=== PATIENT | female | born 2000 | race Two or more races ===

== ENCOUNTER 2024-05-11 19:36 | Emergency (ER) | payer OTHER ==
[~2024-05-11] VITALS: Ht 154.9 cm; Wt 56.2 kg
[2024-05-11 19:58] VITALS: BP 122/78; O2SAT 100
[2024-05-11] MEDS ORDERED: ORPHENADRINE CITRATE 30 MG/ML AMPUL ONE (20:20)
[2024-05-11] MEDS ORDERED: KETOROLAC TROMETHAMINE 60 MG VIAL IM ONE (20:30)
[2024-05-11 20:51] LABS: HEMOGLOBIN 13.3 g/dL (12.0-15.00); MEAN CELL VOLUME 84.8 fL (80.00-100.00); MEAN CORPUSCULAR HEMOGLOBIN 28.9 pg (27.00-32.0); PLATELET COUNT 229 K/uL (150-450); RED CELL DISTRIBUTION WIDTH 14.1 % (11.5-14.5)
== END 2024-05-12 00:06 | disposition home or self-care (01) ==
LOC: ER 19:38
PROVIDERS: General Practice
DX: R53.81 Other malaise (principal); R00.2 Palpitations

== ENCOUNTER 2024-10-06 13:00 | Emergency (ER) | payer OTHER ==
[~2024-10-06] VITALS: Ht 154.9 cm; Wt 54.4 kg
[2024-10-06] MEDS ORDERED: PHENAZOPYRIDINE HCL 100 MG TABLET PO ONE ×2 (14:00)
[2024-10-06] MEDS ORDERED: CEFTRIAXONE SODIUM 1,000 MG VIAL IM ONE (14:00)
[2024-10-06] MEDS ORDERED: CEFTRIAXONE SODIUM 1,000 MG VIAL ONE (14:01)
[2024-10-06] MEDS ORDERED: LIDOCAINE HCL/MPF 1% 5ML VIAL IJ ONE (14:01)
[2024-10-06 14:56] LABS: URINE APPEARANCE Clear; URINE BILIRRUBIN Negative (NEGATIVE); URINE BLOOD Negative; URINE COLOR Yellow; URINE GLUCOSE Negative (NEGATIVE); URINE KETONE 15 (NEGATIVE); URINE LEUKOCYTE Moderate; URINE NITRATE Negative; URINE PROTEIN Trace (NEGATIVE)
[2024-10-06 14:57] LABS: URINE BACTERIA 434.4 uL (0.0-1933); URINE EPITHELIAL CELLS 86.2 uL (0.0-38.8); URINE RBC 6.7 uL (0.0-20.8); URINE WBC 401.7 uL (0.0-23.2)
[2024-10-06] MEDS ORDERED: PYRIDIUM DS200 MG PO (15:47)
[2024-10-06] MEDS ORDERED: BACTRIM DS TAB1 EACH PO (15:47)
[2024-10-06] MEDS ORDERED: PROTONIX40 MG PO (15:47)
[2024-10-06 16:03] LABS: URINE MUCUS SCANT
== END 2024-10-06 16:20 | disposition home or self-care (01) ==
LOC: ER 13:00
PROVIDERS: General Practice
DX: N39.0 Urinary tract infection, site not specified (principal)